=== PATIENT | female | born 1985 | race Caucasian/White ===

== ENCOUNTER 2020-09-27 03:15 | Emergency (ER) | payer MEDICAID ==
[~2020-09-27] VITALS: Ht 160 cm; Wt 67.1 kg
[~2020-09-27 03:15] MED LIST: LURA40TA PO; PREN-385 PO; VENL37.55 PO
[2020-09-27 03:25] VITALS: BP 130/74
--- NOTE | 2020-09-27 03:38 | NUR ---
VERONICA COVID SWAB COLLECTED AND TAKEN TO LAB
--- NOTE | 2020-09-27 03:42 | NUR ---
ermd evaluating pt
--- NOTE | 2020-09-27 04:05 | NUR ---
Patient discharged with v/s stable. Written and verbal after care instructions given and explained. Patient alert, oriented and verbalized understanding of instructions. Ambulatory with steady gait. All questions addressed prior to discharge. ID band removed. Patient advised to follow up with PMD. Rx of PENICILLIN given. Patient educated on indication of medication including possible reaction and side effects. Opportunity to ask questions provided and answered.
== END 2020-09-27 04:05 | disposition home or self-care (01) ==
LOC: MED 03:15
DX: J02.9 Acute pharyngitis, unspecified (principal); F32.9 Major depressive disorder, single episode, unspecified; F17.200 Nicotine dependence, unspecified, uncomplicated; Z79.899 Other long term (current) drug therapy; Z20.828 Contact with and (suspected) exposure to other viral communicable diseases
CPT/HCPCS: 99283

== ENCOUNTER 2021-08-11 03:36 | Emergency (ER) | payer MEDICAID, OTHER ==
[~2021-08-11] VITALS: Ht 162.6 cm; Wt 61.2 kg
[2021-08-11 03:49] VITALS: BP 131/78
--- NOTE | 2021-08-11 03:55 | NUR ---
35 YO/F BIB SELF W CO ALCOHOL WITHDRAWL, SOB, DIZZINESS, AND TINGLING SENSATION TO ARMS, AND MOUTH. PATIENT REPORTS SHE HAS BEEN BINGE DRINKING ALCOHOL FOR PAST 2 DAYS. PATIENT REPORTS SHE FEELS ANXIOUS. PATIENT REPORTS BREAKUP WITH BOYFRIEND TODAY. PATIENT ALSO REPORTS SHE USES COCAINE, ECSTACY, AND MUSHROOMS. PATIENT PRESENTS AOX4, GCS 15, TACHYCARDIC, TACHYPNEIC, W CIWA SCORE 18, LUNH SOUNDS CLEAR THROUGHOUT, BOWEL SOUNDS PRESENT. PATIENT SITTING IN BED LOCKED IN LOWEST POSITION W X1 SIDERAIL UP. PATIENT SPEAKING W ERMD. PMH: ALCOHOLISM, BIPOLAR, BORDELINE PERSONALITY, ANXIETY, DEPRESSION, PTSD NKA
--- NOTE | 2021-08-11 03:55 | NUR ---
PATIENT DENIES SI.
--- NOTE | 2021-08-11 04:00 | NUR ---
PATIENT WORKING ON BREATHING EXERCISES TO SLOW BREATHING, PATIENT 19RR, 94 HR.
[2021-08-11] MEDS ORDERED: LORazepam 0.5 MG TAB PO ONE (04:05)
--- NOTE | 2021-08-11 04:10 | NUR ---
PATIENT REFUSED ATIVAN AT THIS TIME, PATIENT REPORTS SHE DOES NOT WANT MEDICATION THAT CAN MAKE HER DROWSY AND REPORTS SHE WILL CONTINUE TO WORK ON HER BREATHING EXERCISES. PATIENT REPORTS TINGLING SENSATION IS GONE. CONNECTED TO MONITOR W VSS. WILL CONTINUE TO MONITOR.
[2021-08-11 04:25] VITALS: BP 131/78
--- NOTE | 2021-08-11 04:25 | NUR ---
PATIENT ELOPED FROM FACILITY. DISCHARGE INSTRUCTIONS NOT GIVEN TO PATIENT. DR. SHULTZ NOTIFIED.
== END 2021-08-11 04:25 | disposition left against medical advice (07) ==
LOC: MED 03:36
DX: F41.0 Panic disorder [episodic paroxysmal anxiety] (principal); F43.0 Acute stress reaction; F14.90 Cocaine use, unspecified, uncomplicated; Z79.899 Other long term (current) drug therapy
CPT/HCPCS: 99283

== ENCOUNTER 2021-10-15 20:55 | Emergency (ER) | payer OTHER ==
[~2021-10-15] VITALS: Ht 157.5 cm; Wt 66.2 kg
[2021-10-15 21:00] VITALS: BP 157/93
--- NOTE | 2021-10-15 21:09 | NUR ---
pt ambulated to bed 09.
--- NOTE | 2021-10-15 21:10 | NUR ---
PT PRESENTS TO THE ED WITH C/O VOMITING. NO ACTIVE VOMITING AT THIS TIME. PT STATES VOMITING WAS WORSE YESTERDAY AND SHE JUST WANTS TO HAVE A DOCTOR'S NOTE TO HAVE HER ABSENCE AT WORK TO BE EXCUSED. NO S/S OF DISTRESS NOTED AT THIS TIME
--- NOTE | 2021-10-15 23:18 | NUR ---
Patient discharged with v/s stable. Written and verbal after care instructions given and explained. Patient verbalized understanding. Ambulatory with steady gait. All questions addressed prior to discharge. Advised to follow up with PMD.
[2021-10-15 23:23] VITALS: BP 157/93
== END 2021-10-15 23:18 | disposition home or self-care (01) ==
LOC: MED 20:55
DX: R11.2 Nausea with vomiting, unspecified (principal); M79.10 Myalgia, unspecified site; Z79.899 Other long term (current) drug therapy
CPT/HCPCS: 81025; 99282

== ENCOUNTER 2023-05-19 22:22 | Emergency (ER) | payer OTHER ==
[~2023-05-19] VITALS: Ht 160 cm; Wt 63.5 kg
[~2023-05-19 22:22] MED LIST changes: -LURA40TA PO; +LURA40TA1 PO
[2023-05-19 22:45] VITALS: BP 130/90; PULSE 81; RESP 16; TEMP 97.7; O2SAT 98
--- NOTE | 2023-05-19 22:48 | NUR ---
to lobby a/w bed ambulatory
--- NOTE | 2023-05-19 23:07 | NUR ---
PT TAKEN TO BED 8
--- NOTE | 2023-05-19 23:08 | NUR ---
pt resting on bed. not in distress. on monitor. A/Ox4. placed on moderate high back rest
--- NOTE | 2023-05-19 23:38 | NUR ---
Dr. Bui examining patient.
[2023-05-19 23:45] LABS: BASOPHILS % (AUTO) 0.9 % (0.0-2.0); EOSINOPHILS % (AUTO) 0.7 % (0.0-4.0); HEMATOCRIT 33.9 % (36-48); HEMOGLOBIN 11.8 g/dL (12.0-16.0); LYMPHOCYTES % (AUTO) 37.2 % (20.5-51.1); MEAN CORPUSCULAR HEMOGLOBIN 31 pg (27-31); MEAN CORPUSCULAR HGB CONC 35 g/dL (33-37); MEAN CORPUSCULAR VOLUME 89.5 fL (80-94); MONOCYTES # (AUTO) 0.5 K/uL (0.8-1.0); MONOCYTES % (AUTO) 9.7 % (1.7-9.3); NEUTROPHILS # (AUTO) 2.7 K/uL (1.8-7.7); NEUTROPHILS % (AUTO) 51.5 % (42.2-75.2); PLATELET COUNT (AUTO) 352 K/uL (140-450); RED BLOOD CELL COUNT(AUTO) 3.79 MIL/uL (4.20-5.40); RED CELL DISTRIBUTION WIDTH 12.2 % (11.6-13.7); WHITE BLOOD COUNT (AUTO) 5.2 K/uL (4.8-10.8)
[2023-05-19 23:59] LABS: ALBUMIN 3.4 g/dL (3.4-5.0); ANION GAP 14.2 (8-16); CARBON DIOXIDE 25.9 mmol/L (21-32); CREATININE 0.7 mg/dL (0.6-1.3); POTASSIUM 3.1 mmol/L (3.5-5.1); TOTAL BILIRUBIN 0.4 mg/dL (0.0-1.0)
[2023-05-20] MEDS ORDERED: ONDANSETRON 4 MG ODT PO ONE (00:20)
[2023-05-20] MEDS ORDERED: FAMOTIDINE 20 MG TAB PO ONE (00:20)
[2023-05-20] MEDS ORDERED: POTASSIUM CHLORIDE 10 MEQ TABER PO ONE (00:20)
[2023-05-20] MEDS ORDERED: DICYCLOMINE 10 MG CAP PO ONE (00:20)
[2023-05-20] MEDS ORDERED: LOPE2TAB42 PO (00:29)
[2023-05-20] MEDS ORDERED: ONDA-188 PO (00:29)
[2023-05-20] MEDS ORDERED: FAMO-90 PO (00:29)
--- NOTE | 2023-05-20 00:40 | NUR ---
Note janki in EDM - 05/20/23 at 0105 by [email or web address] Patient discharged with v/s stable. Written and verbal after care instructions given and explained. Patient alert, oriented and verbalized understanding of instructions. Ambulatory with steady gait. All questions addressed prior to discharge. ID band removed. Patient advised to follow up with PMD. Rx given to pt. Patient educated on indication of medication including possible reaction and side effects. Opportunity to ask questions provided and answered.
[2023-05-20 01:05] VITALS: BP 130/90; PULSE 81; RESP 16; TEMP 97.5; O2SAT 98
--- NOTE | 2023-05-20 01:05 | NUR ---
Patient discharged with v/s stable. Written and verbal after care instructions given and explained. Patient alert, oriented and verbalized understanding of instructions. Ambulatory with steady gait. All questions addressed prior to discharge. ID band removed. Patient advised to follow up with PMD. Rx given to pt. Patient educated on indication of medication including possible reaction and side effects. Opportunity to ask questions provided and answered.
== END 2023-05-20 01:05 | disposition home or self-care (01) ==
LOC: MED 22:22
DX: K52.9 Noninfective gastroenteritis and colitis, unspecified (principal); A05.9 Bacterial foodborne intoxication, unspecified; B96.89 Other specified bacterial agents as the cause of diseases classified elsewhere; Z79.899 Other long term (current) drug therapy; Z98.890 Other specified postprocedural states
CPT/HCPCS: 36415; 80053; 81002; 81025; 83690; 85025; 99284; Q0162

== ENCOUNTER 2024-05-06 19:26 | Emergency (ER) | payer OTHER ==
[~2024-05-06] VITALS: Ht 157.5 cm; Wt 66.7 kg
[~2024-05-06 19:26] MED LIST changes: +FAMO-90 PO; +LOPE2TAB42 PO; +ONDA-188 PO; -VENL37.55 PO; +VENL37.57 PO
[2024-05-06 19:37] VITALS: BP 141/82; PULSE 77; RESP 16; TEMP 97.4; O2SAT 98
[2024-05-06 20:01] LABS: APPEARANCE,URINE CLEAR (CLEAR); BILIRUBIN,URINE NEGATIVE (NEGATIVE); BLOOD, URINE NEGATIVE (NEGATIVE); COLOR,URINE YELLOW (YELLOW); LEUKOCYTE ESTERASE ,URINE NEGATIVE (NEGATIVE); NITRITE, URINE NEGATIVE (NEGATIVE); PH,URINE 7.5 (5.0-9.0); PROTEIN,URINE NEGATIVE (NEGATIVE); UGLUCOSE NEGATIVE (NEGATIVE); UROBILINOGEN,URINE 0.2 EU/dL (0.2 - 1)
[2024-05-06 20:16] LABS: BASOPHILS % (AUTO) 0.4 % (0.0-2.0); EOSINOPHILS # (AUTO) 0.1 K/uL (0-0.4); EOSINOPHILS % (AUTO) 0.9 % (0.0-4.0); HEMATOCRIT 34.2 % (36-48); HEMOGLOBIN 11.4 g/dL (12.0-16.0); LYMPHOCYTES # (AUTO) 1.9 K/uL (2.5-16.5); LYMPHOCYTES % (AUTO) 24.2 % (20.5-51.1); MEAN CORPUSCULAR HEMOGLOBIN 31 pg (27-31); MEAN CORPUSCULAR HGB CONC 34 g/dL (33-37); MEAN CORPUSCULAR VOLUME 92.1 fL (80-94); MONOCYTES # (AUTO) 0.5 K/uL (0.8-1.0); MONOCYTES % (AUTO) 6.4 % (1.7-9.3); NEUTROPHILS # (AUTO) 5.4 K/uL (1.8-7.7); NEUTROPHILS % (AUTO) 68.1 % (42.2-75.2); PLATELET COUNT (AUTO) 386 K/uL (140-450); RED BLOOD CELL COUNT(AUTO) 3.71 MIL/uL (4.20-5.40); RED CELL DISTRIBUTION WIDTH 12.9 % (11.6-13.7); WHITE BLOOD COUNT (AUTO) 7.9 K/uL (4.8-10.8)
[2024-05-06 20:39] LABS: CALCIUM 8.2 mg/dL (8.5-10.1); CARBON DIOXIDE 24.8 mmol/L (21-32); CREATININE 0.7 mg/dL (0.6-1.3); POTASSIUM 3.8 mmol/L (3.5-5.1)
[2024-05-06 20:44] LABS: ALBUMIN 3.6 g/dL (3.4-5.0); BILIRUBIN,DIRECT 0.1 mg/dL (0.0-0.3); TOTAL BILIRUBIN 0.5 mg/dL (0.0-1.0); TOTAL PROTEIN, SERUM 7.3 g/dL (6.4-8.2)
== END 2024-05-06 22:37 | disposition home or self-care (01) ==
LOC: MED 19:26
DX: R10.31 Right lower quadrant pain (principal); F31.9 Bipolar disorder, unspecified; F10.20 Alcohol dependence, uncomplicated; Z79.899 Other long term (current) drug therapy; Z98.890 Other specified postprocedural states; Y90.9 Presence of alcohol in blood, level not specified
CPT/HCPCS: 36415; 80048; 80076; 81003; 85025; 99284